=== PATIENT | female | born 1970 | race Caucasian/White ===

== ENCOUNTER 2018-05-02 09:24 | Day surgery (SDC) | payer BC ==
[~2018-05-02 09:24] MED LIST: Buffered Lidocaine 1% SYRIN* 1 ML/SYRINGE INTRADERM ONE; Lactated Ringers 1000 ML Bag* 1,000 ML IV SCH
[2018-05-02] MEDS ORDERED: Dexamethasone IV* 4 MG/ML 1 ML (4 MG) ONE (10:58)
[2018-05-02] MEDS ORDERED: Midazolam* 1 MG/ML 5 ML VIAL (5 MG) ONE (10:58)
[2018-05-02] MEDS ORDERED: Propofol* 10 MG/ML 20 ML BTL ONE (10:58)
[2018-05-02] MEDS ORDERED: fentaNYL* 50 MCG/ML 2 ML VIAL (100 MCG VIAL) ONE (10:58)
[2018-05-02 11:00] LABS: Hematocrit 44 % (35-47); Hemoglobin 14.4 g/dl (12.0-16.0); Mean Corpuscular HGB Conc 33 g/dl (31-36); Mean Corpuscular Hemoglobin 30 pg (27-31); Mean Corpuscular Volume 92 fL (80-97); Mean Platelet Volume 7.4 fL (7.4-10.4); Platelet Count 336 10^3/ul (150-450); Red Blood Count 4.76 10^6/ul (4.00-5.40); Red Cell Distribution Width 15 % (10.5-15); White Blood Count 6.1 10^3/ul (3.5-10.8)
[2018-05-02] MEDS ORDERED: Ketorolac INJ* 30 MG/ML 1 ML VIAL ONE (11:33)
[2018-05-02] MEDS ORDERED: Ondansetron INJ* 2 MG/ML VIAL ONE (11:33)
[2018-05-02] MEDS ORDERED: Acetaminophen TAB* 325 MG PO PRN (11:40)
[2018-05-02] MEDS ORDERED: fentaNYL* 50 MCG/ML 2 ML VIAL (100 MCG VIAL) IV PRN (11:40)
[2018-05-02] MEDS ORDERED: Ondansetron INJ* 2 MG/ML VIAL IV PRN (11:40)
[2018-05-02] MEDS ORDERED: oxyCODONE/Acetamin 5/325 MG* TAB PO PRN (11:40)
[2018-05-02] MEDS ORDERED: Naloxone* 0.4 MG/ML 1 ML VIAL IV PRN (11:40)
[2018-05-02 13:45] VITALS: BP 116/70
--- NOTE | 2018-05-02 14:29 | OP ---
CC: [facility] BRIEF OPERATIVE REPORT: DATE OF OPERATION: 05/02/18 DATE OF : 70 SURGEON: Renard Kemp MD. ANESTHESIOLOGIST: Dr. Yeung. ANESTHESIA: General endotracheal anesthesia. PRE-OP DIAGNOSIS: Cervical polyp on exam. POST-OP DIAGNOSIS: Cervical polyp on exam. OPERATIVE PROCEDURE: Dilation, hysteroscopy, removal of cervical polyp. ESTIMATED BLOOD LOSS: Minimal, less than 20 cc. FINDINGS: Small anteverted uterus. Uterus sounds to 8. There is a large endocervical polyp approxi mately 1.5 cm that was friable. On hysteroscopy, the remainder of the endometrium appeared normal. Both tubal ostia were visualized. COMPLICATIONS: None. COUNTS: Sponge, lap, and needle counts were correct x2. CONDITION: The patient tolerated the procedure well and was brought to recovery room awake and in st able condition. DESCRIPTION OF PROCEDURE: The patient was brought to the operating room. When general anesthesia wa s found to be adequate, the patient was prepped and draped in the usual sterile fashion in the dorsal lithotomy position. Time-out was performed. Exam under anesthesia was performed. Weighted speculu m was placed in the vagina. Anterior lip of the cervix was grasped with a single-tooth tenaculum and the cervix was gently and easily dilated with the Torrez dilators. The hysteroscope was introduced. The endometrium appeared normal. A large endocervical polyp was noted. This was grasped with the p olyp forceps, twisted, and removed. Curette was then used to remove any remaining tissue from the en docervix. The tenaculum was removed from the anterior lip of the cervix. Excellent hemostasis was no yolande. All instruments were removed from the vagina and the patient was brought to the recovery room a wake and in stable condition. [id number]/[facility] #: [id number]
== END 2018-05-02 13:49 | disposition home or self-care (01) ==
LOC: OR 09:24
PROVIDERS: ATTEND Obstetrics & Gynecology
DX: N84.1 Polyp of cervix uteri (principal); N92.0 Excessive and frequent menstruation with regular cycle; Z72.0 Tobacco use
CPT/HCPCS: 36415; 81025; 85027; 86850; 86900; 86901; 88305; J1100; J1885; J2250; J2405; J2704; J3010